=== PATIENT | male | born 1985 | race Caucasian/White ===

== ENCOUNTER 2017-12-25 09:56 | Emergency (ER) | payer SELFPAY ==
[2017-12-25 10:21] VITALS: BP 127/81; PULSE 71; TEMP 98.2; BMI 27.0
[2017-12-25] MEDS ORDERED: predniSONE 20 MG TABLET (UD) PO ONE (11:57)
[2017-12-25] MEDS ORDERED: KETOROLAC TROMETHAMINE 60 MG/2 ML VIAL IM ONE (11:57)
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
[2017-12-25] MEDS ORDERED: predniSONE 20 MG TABLET (UD) ONE (12:04)
[2017-12-25] MEDS ORDERED: KETOROLAC TROMETHAMINE 60 MG/2 ML VIAL ONE (12:04)
== END 2017-12-25 12:14 | disposition home or self-care (01) ==
LOC: JERFT 09:56
PROC: 3E0233Z Introduction of Anti-inflammatory into Muscle, Percutaneous Approach (ICD-10-PCS; principal; 2017-12-25)
DX: M62.830 Muscle spasm of back (principal)
CPT/HCPCS: 99281-25